=== PATIENT | female | born 1970 | race Two or more races ===

== ENCOUNTER 2023-07-27 17:48 | Outpatient (OUT) | payer BC, SELFPAY ==
--- NOTE | 2023-07-27 18:08 | US_ITS ---
The [address] [address] Patient Name: MIRTA CHAHAL MRN: [id number] date: 1970 Sex: F Assigned Patient Location: [facility] Current Patient Location: RAD Accession/Order Number: [id number] Exam Date: 07/27/2023 18:15 Report Date: 07/28/2023 07:44 At the request of: CRYSTAL REILLY Procedure: US pelvis w/ transvaginal EXAMINATION: US pelvis w/ transvaginal HISTORY: LLQ PAIN, FLANK PAIN COMPARISON: Ultrasound pelvis 03/09/2021 TECHNIQUE: Transabdominal and/or transvaginal sonographic examination was performed as indicated by examination type. FINDINGS: UTERUS: Hysterectomy. RIGHT OVARY: Not seen. No suspicious adnexal findings. LEFT OVARY: Not seen. No suspicious adnexal findings. CUL-DE-SAC: Unremarkable. No significant free fluid. BLADDER: Unremarkable. OTHER: None. US/US pelvis w/ transvaginal IMPRESSION: 1. No abnormal or suspicious findings to account for patient's symptoms. Electronically authenticated by: ARNULFO GUERRERO Date: 07/28/2023 07:44
--- NOTE | 2023-07-27 18:14 | XR_ITS ---
The [address] [address] Patient Name: MIRTA CHAHAL MRN: [id number] date: 1970 Sex: F Assigned Patient Location: [facility] Current Patient Location: Accession/Order Number: [id number] Exam Date: 07/27/2023 18:45 Report Date: 07/28/2023 06:40 At the request of: CRYSTAL REILLY Procedure: XR abdomen 1V EXAMINATION: XR abdomen 1V HISTORY: LLQ PAIN, LEFT FLANK PAIN COMPARISON: No relevant comparison available. FINDINGS: KIDNEY/URETER - RIGHT: No visible renal or ureteral calcifications. KIDNEY/URETER - LEFT: No visible renal or ureteral calcifications. PELVIS: Several small round calcifications within the lower pelvis; nonspecific but favoring phleboliths. BOWEL: No abnormal dilation or deviation. BONES: No acute abnormality. OTHER: Negative. No abnormal gaseous collections. XR/XR abdomen 1V IMPRESSION: 1. Nonspecific pelvic calcifications; phleboliths are favored over distal ureteral stones. Electronically authenticated by: ARNULFO GUERRERO Date: 07/28/2023 06:40
== END 2023-07-27 17:49 | disposition home or self-care (01) ==
PROVIDERS: PCP Nurse Practitioner; Visit Provider Nurse Practitioner
DX: R10.32 Left lower quadrant pain (principal); R10.9 Unspecified abdominal pain
CPT/HCPCS: 74018; 76830; 76856

== ENCOUNTER 2023-08-02 16:10 | Outpatient (OUT) | payer BC, SELFPAY ==
--- NOTE | 2023-08-02 | XR_ITS ---
The [address] [address] Patient Name: MIRTA CHAHAL MRN: [id number] date: 1970 Sex: F Assigned Patient Location: LAB Current Patient Location: LAB Accession/Order Number: [id number] Exam Date: 08/02/2023 16:40 Report Date: 08/02/2023 23:15 At the request of: CRYSTAL REILLY Procedure: XR hip LT 2V w/ pelvis EXAM: XR hip LT 2V w/ pelvis HISTORY: Left hip pain COMPARISON: None. TECHNIQUE: AP pelvis and 2 views of the left hip FINDINGS: IMPRESSION: No osseous lesion, fracture, dislocation or subluxation. The hip joints and sacroiliac joints are normal. Mild age-related changes of the pubic symphysis. No visualized effusion. No visualized soft tissue edema. Stool within the rectum and colon. The bowel gas pattern is nonobstructed Electronically authenticated by: CHANDNI MORALES Date: 08/02/2023 23:15
[2023-08-02 16:41] LABS: Basophils Percent Auto 0.4 % (0.2-2.0); Eosinophils Absolute Auto 0.2 10^3/uL (0.0-0.7); Eosinophils Percent Auto 1.9 % (0.9-7.0); Hematocrit 38.7 % (36.0-48.0); Hemoglobin 12.9 g/dL (12.0-16.0); Immature Granulocytes Abs Auto 0.02 10^3/uL (0.00-0.03); Immature Granulocytes Pct Auto 0.3 % (0.0-0.5); Lymphocytes Absolute Auto 2.5 10^3/uL (1.2-3.8); Lymphocytes Percent Auto 31.7 % (20.5-60.0); Mean Corpuscular HGB Conc 33.3 g/dL (29.9-35.2); Mean Corpuscular Hemoglobin 31.8 pg (26.7-34.0); Mean Corpuscular Volume 95.3 fL (81.0-99.0); Mean Platelet Volume 9.8 fL (9.5-13.5); Monocytes Absolute Auto 0.8 10^3/uL (0.3-0.8); Monocytes Percent Auto 9.5 % (1.7-12.0); Neutrophils Absolute Auto 4.4 10^3/uL (1.4-6.5); Neutrophils Percent Auto 56.2 % (43.0-75.0); Platelet Count 283 10^3/uL (150-450); Red Blood Count 4.06 10^6/uL (4.20-5.40); Red Cell Distribution Width 12.3 % (11.0-15.0); White Blood Count 7.9 10^3/uL (4.0-11.0)
[2023-08-02 16:42] LABS: Bilirubin Urine NEGATIVE (NEGATIVE); Blood Urine SMALL (NEGATIVE); Clarity Urine CLEAR (CLEAR); Color Urine LT. YELLOW (YELLOW); Glucose Urine UA NEGATIVE (NEGATIVE); Ketones Urine NEGATIVE (NEGATIVE); Leukocyte Esterase Urine NEGATIVE (NEGATIVE); Nitrite Urine NEGATIVE (NEGATIVE); Protein Urine NEGATIVE (NEG/TRACE); Specific Gravity Urine <=1.005 (1.005-1.025); Urobilinogen Urine 0.2 EU/dL (0.2-1.0)
[2023-08-02 16:47] LABS: Urine Microscopic Indicated ALREADY ORDERED
[2023-08-02 16:49] LABS: Erythrocyte Sedimentation Rate 26 mm/hr (<=30)
[2023-08-02 16:57] LABS: Bacteria Urine TRACE #/HPF (NONE SEEN); Crystals Seen? None Seen #/HPF (None Seen); Mucus Urine NONE SEEN (NONE SEEN); Squamous Epithelial Cell Urine RARE #/LPF (NONE/RARE); WBC Urine NONE SEEN #/HPF (NONE SEEN)
[2023-08-02 16:58] LABS: Cast Seen? NONE SEEN #/LPF (NONE SEEN); Urine Culture Indicated NO
[2023-08-02 16:58] LABS: Alanine Aminotransferase 29 U/L (14-59); Albumin Globulin Ratio 0.9; Albumin Level 3.6 g/dL (3.4-5.0); Alkaline Phosphatase 87 U/L (46-116); Anion Gap 11.1; Aspartate Amino Transferase 15 U/L (15-37); BUN Creatinine Ratio 15.3; Bilirubin Total 0.2 mg/dL (0.2-1.0); Calcium 9.1 mg/dL (8.5-10.1); Carbon Dioxide 26.7 mmol/L (21.0-32.0); Chloride 102 mmol/L (98-107); Estimated GFR (African America >60 (>=60); Estimated GFR (Non-African Ame >60 (>=60); Globulin 3.8 g/dL; Glucose 82 mg/dL (74-106); Potassium 3.8 mmol/L (3.5-5.1); Sodium 136 mmol/L (136-145); Total Protein 7.4 g/dL (6.4-8.2)
== END 2023-08-02 16:11 | disposition home or self-care (01) ==
LOC: LAB 16:16
PROVIDERS: PCP Nurse Practitioner; Visit Provider Nurse Practitioner
DX: M25.552 Pain in left hip (principal); R10.32 Left lower quadrant pain
CPT/HCPCS: 36415; 73502; 80053; 85025; 85652

== ENCOUNTER 2023-08-26 07:39 | Outpatient (OUT) | payer BC, SELFPAY ==
[2023-08-26 08:28] LABS: Bilirubin Urine NEGATIVE (NEGATIVE); Blood Urine MODERATE (NEGATIVE); Clarity Urine CLEAR (CLEAR); Color Urine YELLOW (YELLOW); Glucose Urine UA NEGATIVE (NEGATIVE); Ketones Urine NEGATIVE (NEGATIVE); Leukocyte Esterase Urine NEGATIVE (NEGATIVE); Nitrite Urine NEGATIVE (NEGATIVE); Protein Urine NEGATIVE (NEG/TRACE); Specific Gravity Urine 1.015 (1.005-1.025); Urobilinogen Urine 0.2 EU/dL (0.2-1.0); pH Urine 6.5 (5.0-9.0)
[2023-08-26 08:30] LABS: WBC Urine NONE SEEN #/HPF (NONE SEEN)
[2023-08-26 08:31] LABS: Bacteria Urine NONE SEEN #/HPF (NONE SEEN); Cast Seen? NONE SEEN #/LPF (NONE SEEN); Crystals Seen? None Seen #/HPF (None Seen); Mucus Urine NONE SEEN (NONE SEEN); RBC Urine 0-2 #/HPF (0-2); Squamous Epithelial Cell Urine RARE #/LPF (NONE/RARE); Urine Culture Indicated NO
== END 2023-08-26 07:40 | disposition home or self-care (01) ==
LOC: LAB 07:40
PROVIDERS: PCP Nurse Practitioner; Visit Provider Nurse Practitioner
DX: R31.29 Other microscopic hematuria (principal)
CPT/HCPCS: 81001

== ENCOUNTER 2023-09-02 08:40 | Outpatient (OUT) | payer BC, SELFPAY ==
--- NOTE | 2023-09-02 | CT_ITS ---
[address] [address] Patient Name: MIRTA CHAHAL MRN: [id number] date: 1970 Sex: F Assigned Patient Location: CT Current Patient Location: CT Accession/Order Number: [id number] Exam Date: 09/02/2023 10:10 Report Date: 09/02/2023 11:47 At the request of: CRYSTAL REILLY Procedure: CT abdomen pelvis w con CLINICAL HISTORY: Microscopic hematuria, questionable hernia LLQ. EXAMINATION: Enhanced CT scan of the abdomen and pelvis: 09/02/2023. COMPARISON: None. TECHNIQUE: 3 mm axial images from lung bases through ischial tuberosities following administration of intravenous as well as oral contrast were obtained. Sagittal and coronal reconstructions were performed. 98 mL of Omnipaque 350 was utilized as intravenous contrast. Dose reduction techniques were achieved by using automated exposure control and/or adjustment of mA and/or kV according to patient size and/or use of iterative reconstruction technique. FINDINGS: The visualized lung bases seem normal. There is a calcified granuloma in the right middle lobe. The heart size seems normal. There are no filling defects in the cardiac chambers postcontrast. CT ABDOMEN: The liver demonstrates there is a low-attenuation lesion in the lateral segment of the left hepatic lobe, measuring approximately 1.6 cm in size with average Hounsfield units of approximately 6. There is a low-attenuation lesion in the lateral segment of the left hepatic lobe measuring 6 mm in size. There is hypodensity in the medial segment of left hepatic lobe, measuring approximately 8 mm in size. There is focal fatty infiltration abutting the falciform ligament in the medial as well as the lateral segments of the left hepatic lobe. There are multiple calculi in the gallbladder without wall thickening or induration of surrounding fat. Spleen, pancreas, adrenal glands, left kidney appears normal. In the right kidney there is a partially parapelvic low-attenuation lesion in the upper pole, measuring approximately 1.8 cm in size with average Hounsfield units of approximately 15. There is no hydronephrosis, nephrolithiasis, or perinephric fat stranding. The abdominal aorta has mild atherosclerotic changes. There is no retroperitoneal or mesenteric adenopathy. There is no aneurysm. The bowel loops are of normal caliber. There is no abdominal wall hernia. The appendix appears normal. CT PELVIS: There is no ureterolithiasis. The bladder seems normal. The uterus and ovaries are not well seen. There is no pelvic adenopathy. On the delayed phase contrast images there are no suspicious filling defects in the opacified portions of the collecting systems, ureters, or bladder. There is no pelvic adenopathy. There are no focal fluid collections. The images on bone windows demonstrate degenerative disc disease with vacuum disc phenomena at L4-L5 with some endplate sclerosis. No lytic or sclerotic lesions are seen. CT/CT abdomen pelvis w con IMPRESSION: 1. There is no nephro or ureterolithiasis. 2. There is a simple cyst in the right kidney. There are no suspiciously enhancing lesions in the kidneys. There are no suspicious filling defects in the opacified portions of the collecting systems, ureters, or bladder. 3. Cholelithiasis but no acute cholecystitis. 4. Fatty liver. 5. Normal appendix. Electronically authenticated by: MARKIE BRANDON Date: 09/02/2023 11:47
== END 2023-09-02 08:41 | disposition home or self-care (01) ==
LOC: CT 08:43
PROVIDERS: PCP Nurse Practitioner; Visit Provider Nurse Practitioner
DX: R10.32 Left lower quadrant pain (principal); K80.20 Calculus of gallbladder without cholecystitis without obstruction; K76.0 Fatty (change of) liver, not elsewhere classified; N28.1 Cyst of kidney, acquired
CPT/HCPCS: 74177; Q9967

== ENCOUNTER 2023-09-25 15:20 | Outpatient (OUT) | payer BC, SELFPAY ==
--- NOTE | 2023-09-25 15:23 | MR_ITS ---
[address] [address] Patient Name: MIRTA CHAHAL MRN: [id number] date: 1970 Sex: F Assigned Patient Location: MRI Current Patient Location: Accession/Order Number: [id number] Exam Date: 09/25/2023 16:00 Report Date: 09/27/2023 07:40 At the request of: CRYSTAL REILLY Procedure: MR abdomen wo/w con EXAMINATION: MR abdomen wo/w con HISTORY: Liver Lesion K76.9 COMPARISON: CT abdomen pelvis 09/02/2023 TECHNIQUE: A comprehensive MRI examination of the abdomen was performed to optimize visualization of suspected pathology. Images were obtained with and/or without intravenous Dotarem contrast as indicated by exam type. FINDINGS: LIVER: Several small cysts within the liver, largest is 2.0 cm. BILIARY: Several large stones within the noninflamed gallbladder. PANCREAS: No lesion, fluid collection, ductal dilatation, or atrophy. SPLEEN: No enlargement or focal lesion. KIDNEYS: Stable benign-appearing right renal cyst. No mass or obstruction. ADRENALS: No mass or enlargement. AORTA/VASCULAR: No aneurysm or dissection. RETROPERITONEUM: No mass or adenopathy. BOWEL/MESENTERY: No visible mass, obstruction, or bowel wall thickening. ABDOMINAL WALL: No mass or hernia. BONES: No bony lesion or fracture. LUNG BASES: No visible pleural disease. Lung bases not well assessed with MRI. OTHER: Negative. MR/MR abdomen wo/w con IMPRESSION: 1. Several small lesions within the liver compatible with simple cysts. No additional follow-up recommended. 2. Cholelithiasis. Electronically authenticated by: ARNULFO GUERRERO Date: 09/27/2023 07:40
== END 2023-09-25 15:21 | disposition home or self-care (01) ==
PROVIDERS: PCP Nurse Practitioner; Visit Provider Nurse Practitioner
DX: K76.9 Liver disease, unspecified (principal); K76.89 Other specified diseases of liver
CPT/HCPCS: 74183; A9575

== ENCOUNTER 2023-10-14 07:59 | Outpatient (OUT) | payer BC, SELFPAY ==
--- NOTE | 2023-10-14 | US_ITS ---
[address] [address] Patient Name: MIRTA CHAHAL MRN: [id number] date: 1970 Sex: F Assigned Patient Location: US Current Patient Location: US Accession/Order Number: [id number] Exam Date: 10/14/2023 08:07 Report Date: 10/14/2023 11:26 At the request of: CRYSTAL REILLY Procedure: US right upper quadrant EXAM: US right upper quadrant EXAM DATE: 10/14/2023 6:07 AM MST COMPARISON: CT abdomen and pelvis with contrast 09/02/2023. MRI abdomen without contrast 09/25/2023. INDICATION: Cholelithiasis. TECHNIQUE: Limited ultrasound of the right upper quadrant of abdomen was performed. Images were reviewed on a separate workstation. FINDINGS: Hepatic parenchyma is echogenic to adjacent renal cortex. Scattered hepatic cysts measure up to 1.5 x 1.5 x 1.5 cm. Gallbladder is normally distended. Large shadowing gallstones obscure the posterior wall of the gallbladder. No pericholecystic fluid noted. Gallbladder wall measures up to 3-4 mm. Sonographic Brooks's sign is absent. No intrahepatic or extrahepatic biliary ductal dilatation noted. CBD measures 5 mm. Portal vein is patent with hepatopetal flow. Pancreas is partially obscured by bowel gas; visualized parenchyma is homogeneous. Right kidney measures 9.9 x 3.9 x 4.4 cm. No hydronephrosis or nephrolithiasis noted. No free fluid noted in the right upper abdomen. US/US right upper quadrant IMPRESSION: 1. Limited visualization of the gallbladder due to several large shadowing gallstones. Borderline gallbladder wall thickening may represent chronic inflammation. Sonographic Brooks's sign is absent. 2. Mild fatty infiltration of the liver. 3. Subvisualized pancreas. 4. Right kidney without hydronephrosis. Electronically authenticated by: MYRA CROSS Date: 10/14/2023 11:26
== END 2023-10-14 08:00 | disposition home or self-care (01) ==
LOC: US 07:59
PROVIDERS: PCP Nurse Practitioner; Visit Provider Nurse Practitioner
DX: K80.20 Calculus of gallbladder without cholecystitis without obstruction (principal)
CPT/HCPCS: 76705

== ENCOUNTER 2023-12-25 14:32 | Outpatient (OUT) | payer BC, SELFPAY ==
--- NOTE | 2023-12-25 14:34 | ECG_ITS ---
The [facility] Test Date: 2023-12-25 Pat Name: MIRTA CHAHAL Department: Room: - Gender: Female [place]aser: : 1970 Requested By: HERNANDEZ MCGILL Order Number: [id number] Reading MD: MAX STONE Measurements Intervals [place] Rate: 70 P: 23 MA: 140 QRS: 16 QRSD: 87 T: 29 QT: 361 QTc: 390 Interpretive Statements SINUS RHYTHM No previous ECG available for comparison Electronically Signed On 12-25-2023 23:30:32 EST by MAX STONE
== END 2023-12-25 14:33 | disposition home or self-care (01) ==
LOC: PST 14:32
PROVIDERS: PCP Nurse Practitioner; Visit Provider Surgery
DX: Z01.810 Encounter for preprocedural cardiovascular examination (principal); K80.20 Calculus of gallbladder without cholecystitis without obstruction
CPT/HCPCS: 93005

== ENCOUNTER 2024-01-03 09:00 | Day surgery (SDC) | payer BC, SELFPAY ==
[2023-12-25 14:48] VITALS: BP 129/75; PULSE 80; RESP 16; TEMP 36.2; O2SAT 96; BMI 29.3
[2024-01-03] VITALS (10 sets, daily range): BP systolic 108–137; BP diastolic 58–80; PULSE 60–82; RESP 10–18; TEMP 35.5–36.3; O2SAT 95–100
--- NOTE | 2024-01-03 | OP_ITS ---
OPERATION DATE: 01/03/2024 PREOPERATIVE DIAGNOSIS: Symptomatic cholelithiasis. POSTOPERATIVE DIAGNOSIS: Chronic cholecystitis. PROCEDURE: Laparoscopic cholecystectomy. SURGEON: Josr Weaver M.D. ANESTHESIA: General endotracheal. ESTIMATED BLOOD LOSS: Less than 20 mL. INDICATIONS AND CONSENT: Patient is a 53-year-old female with some intermittent upper abdominal complaints. She did end up having a CT scan which revealed hard stones within the gallbladder, as well as some liver cysts. She also had an ultrasound and MRI that confirmed that the cysts were just simple cysts. She had three large stones filling the gallbladder, as well as normal liver function tests. Indications, risks, benefits, alternatives of proceeding with laparoscopic cholecystectomy, possible intraoperative cholangiogram, possible open procedure were explained extensively to the patient, including risks of bleeding, infection, bile duct injury, bowel injury, need for intraoperative cholangiogram, postoperative ERCP or open procedure. All of her questions were answered. Informed consent was obtained. PROCEDURE: Patient was brought to the operating room, placed in the supine position. General anesthesia was induced. She was prepped and draped in the usual sterile fashion. A supraumbilical incision was made with the scalpel blade and carried down through subcutaneous tissue using blunt dissection. The fascia was grasped and incised. Two 0 Vicryl stay sutures were placed in either side of the midline fascia. The Dunham trocar was then inserted and secured using the stay sutures. The abdomen was then insufflated with carbon dioxide to a pressure of 15 mm/Hg. The scope was then inserted and the upper abdomen was visualized. Three 5 mm ports were then placed; one in the subxiphoid area and two in the right subcostal area, all under direct visualization. The patient was placed in reverse Trendelenburg position with the right side up. The fundus of the gallbladder was grasped with an atraumatic grasper and retracted cephalad on the patient?s right. There was some tension from the falciform ligament that was partially taken down to avoid tension on the medial aspect of the liver. The infundibulum was grasped and retracted laterally and inferiorly. Dissection was begun just below the infundibulum, where the cystic duct and cystic artery were carefully dissected out. The infundibulum was completely freed up and the critical view of safety was obtained. The cystic artery was clipped with regular clips; two proximally and one distally towards the gallbladder, then divided. The cystic duct was noted to be of normal caliber. It was clipped with two Hem-O-Lashon clips proximally towards the common duct and one distally towards the gallbladder, then divided. The gallbladder was then taken down from the liver bed using electrocautery. There were some chronic inflammatory changes noted. A small opening in the posterior aspect of the gallbladder revealed some minimal release of light bile. No stones. There were three large stones noted, taking up the majority of the gallbladder lumen. Once the gallbladder was completely removed, it was brought out in an Endocatch bag through the umbilical port site, which had to be enlarged to accommodate the large stones. The upper abdomen was then copiously irrigated. The liver bed was inspected, noted to be hemostatic with no lymph or bile leaks. All port sites were examined upon withdrawal of the ports. There was noted to be good hemostasis. The umbilical port site fascia was closed with a 0 Vicryl figure of eight suture. All port sites were infiltrated with 0.5% Marcaine. The skin was then closed with interrupted 4-0 subcuticular Monocryl sutures and skin glue. Sterile dressings were applied. Sponge and needle counts were correct x3 per nursing personnel. Patient tolerated procedure well, was extubated and sent to recovery room in good condition. CC: LUIZA Costello
--- OUTSIDE RECORDS SUMMARY | 2024-01-03 09:03 | XMS_ITS | CCD ---
Author Name Unknown Address [address] [place] [address] Organization [facility] Care Team Providers Care Auto Air Condition[employer] Installer Name Role Phone AICHHOLZ, HOTEL LOBBY CONCIERGE CHANA Admitting Unavailable ALLISON BOWERS Primary Care Unavailable AICHHOLZ, MACIE CHANA Attending Unavailable AICHHOLZ, HOTEL LOBBY CONCIERGE CHANA Consulting Unavailable LULI REDDY Consulting Unavailable AICHHOLZ, HOTEL LOBBY CONCIERGE CHANA Consulting Unavailable ROBINSON ALLISONAVRIL MACDNOALD Primary Care Unavailable AICHHOLZ, HOTEL LOBBY CONCIERGE CHANA Admitting Unavailable AICHHOLZ, MACIE CHANA Attending Unavailable DR ANISH PIERSON Consulting Unavailable AICHHOLZ, HOTEL LOBBY CONCIERGE CHAAN Consulting Unavailable AICHHOLZ, HOTEL LOBBY CONCIERGE CHANA Admitting Unavailable ALLISON BOWERS Primary Care Unavailable AICHHOLZ, HOTEL LOBBY CONCIERGE CHANA Attending Unavailable AICHHOLZ, HOTEL LOBBY CONCIERGE CHANA Admitting Unavailable [facility] Unavailable AICHHOLZ, HOTEL LOBBY CONCIERGE CHANA Attending Unavailable AICHHOLZ, HOTEL LOBBY CONCIERGE CHANA Consulting Unavailable BETZAIDAHPK, CHANA Attending Unavailable CHANA CARVALHO J Primary Care Physician Josr MCGILL Attending Unavailable CHANA CARVALHO Referring Unavailable Allergies Allergy Classification Reported Allergen(s) Allergy Type Date of Onset Reaction(s) Facility (1 source) No Known Medication Allergies; Translations: [No Known Medication Allergies] Propensity to adverse reactions (disorder) [facility] Repository Medications Current Medications Medication Drug Class(es) Dates Sig (Normalized) Sig (Original) Multi Vitamins oral tablet (1 source) Start: 11-15-2023 take 1 tablet by mouth once daily Multi Vitamins oral tablet 1 tab(s), Oral, Daily, Refill(s) 0 Start Date: 11/15/23 Status: Ordered Problems Active Problems Problem Classification Problem Date Documented Da te Episodic/Chronic Biliary tract disease (1 source) Biliary calculus 11-15-2023 Episodic Immunizations and screening for infectious disease (1 source) Encounter for screening for other infectious and parasitic diseases; Translations: [ENC SCREENING OTH INF PARASITIC DZ] Onset: 01-16-2023 Episodic Other gastrointestinal disorders (1 source) Heartburn 11-15-2023 Episodic Other nutritional; endocrine; and metabolic disorders (1 source) Overweight 12-06-2023 Episodic Other nutritional; endocrine; and metabolic disorders (1 source) Overweight in adulthood with body mass index of 25 or more but less than 30 12-06-2023 Episodic Other screening for suspected conditions (not mental disorders or infectious disease) (4 sources) Encounter for screening mammogram for malignant neoplasm of breast; Translations: [ENC SCR MAMMO MALIG NEOPLASM BREAST] Onset: 02-21-2023 Episodic Residual codes; unclassified (1 source) Family history of malignant neoplasm of ovary; Translations: [FAM HX MALIGNANT NEOPLASM OVARY] Onset: 02-25-2023 Episodic Unclassified (3 sources) CONTACT W/AND (SUSP) EXPOS COVID-19; Translations: [CONTACT W/AND (SUSP) EXPOS COVID-19] Onset: 01-16-2023 Past or Other Problems Problem Classification Problem Date Documented Da te Episodic/Chronic Other connective tissue disease (4 sources) Pain in right leg; Translations: [PAIN IN RIGHT LEG] Onset: 08-17-2022 Episodic Unclassified (1 source) CONTACT W/AND (SUSP) EXPOS COVID-19; Translations: [CONTACT W/AND (SUSP) EXPOS COVID-19] Onset: 01-10-2023 Results Test Name Value Interpretation Reference Range Facil ity Consent for Procedure/Surger yon 12-07-2023 Consent for Procedure/Surgery [id number] .00TIFF Normal [facility] Facesheeton 12-07-2023 Facesheet [id number] .00TIFF Normal [facility] Ambulatory Visit Summaryon 0 12-06-2023 Ambulatory Visit Summary SILKE CHAHALONNE :1970 Visit Date:12/06/2023 Ambulatory Visit Instructions Your Care Team Attending Physician - ARTEM NUNN, Josr Torres Primary Care Physician - CHANA CARVALHO CNP Referring Physician - CHANA CARVALHO CNP This Is Your Medications List Contact prescribing physician if questions or concerns multivitamin (Multi Vitamins oral tablet) Procedures Performed Abdominal hysterectomy, section. Discharge Vitals Heart Rate (Peripheral) 70 Respiratory Rate 16 Blood Pressure 118/82 Height 165 cm Height 65 in Weight 80.4 kg Weight 176.88 lb BMI 29.53 Medications What How Much When Instructions Unchanged multivitamin (Multi Vitamins oral tablet) 1 Tablets By Mouth Every day Contact prescribing physician if questions or concerns Allergies No Known Allergies No Known Medication Allergies Problems Ongoing - Any problem that you are currently receiving treatment for. BMI 29.0-29.9,adult Cholelithiases Heartburn Overweight Patient Survey You may receive a survey via text or e-mail asking about your office visit. Please share your experience with us by completing your survey. We appreciate your feedback and thank you for choosing us for your care. Normal [facility] RAD - Ultrasound Reporton RAD - Ultrasound Report [id number] .00TIFF Normal [facility] Physician Referralon 023 Physician Referral [id number] .00TIFF [facility] MG MAMM SCREEN 3D AYANNA CADon 02-21-2023 MG MAMM SCREEN 3D AYANNA CAD Patient: MIRTA CHAHAL Exam Date: 02/21/2023 : 1970 Gender:F Ordering : MACIE CARVALHO CNP Admission #: [id number] Family : Order #: [id number] CLICK HERE TO VIEW EXAM RADIOLOGY REPORT PROCEDURE: MAMMOGRAM SCREENING 3D BILATERAL CAD COMPARISON: MG MAMM SCREEN AYANNA W CAD, 12/31/2020. MG MAMM SCREEN AYANNA W CAD, 12/19/2019. MG MAMM AYANNA SCRN W CAD DIG, 06/23/2014. INDICATIONS: Screening mammography Calculator Name NCI Breast Cancer Risk Assessment Tool 5 Year Breast Cancer Risk 0.70% Lifetime Breast Cancer Risk 6.40% Personal Breast Cancer No Personal Ovarian Cancer No Treatments None Family Cancers Mother with ovarian cancer at age 54. LOCATION: [facility] BREAST COMPOSITION: Heterogeneously dense,which may obscure small masses. FINDINGS: DIAGNOSTIC CATEGORY 1--NEGATIVE. RIGHT BREAST: No significant suspicious finding. No significant change has occurred. LEFT BREAST: No significant suspicious finding. No significant change has occurred. RECOMMENDATIONS: ROUTINE MAMMOGRAM AND CLINICAL EVALUATION IN 12 MONTHS. PLEASE NOTE: A NORMAL MAMMOGRAM DOES NOT EXCLUDE THE POSSIBILITY OF BREAST CANCER. A CLINICALLY SUSPICIOUS PALPABLE LUMP SHOULD BE BIOPSIED. Dictated by: Anish Pierson M.D. on 02/21/2023 at 17:41 Approved by: Anish Pierson M.D. on 02/21/2023 at 17:44 Normal [facility] 12-28 SARS-CoV-2 (COVID-19) RNA BOBY+probe Ql (Unsp spec) Not detected Normal NOT DETECTED [facility] Comment on above: Result Comment: When diagnostic testing is negative, the possibility of a false negative should be considered in the context of a patient's recent exposures and the presence of clinical signs and symptoms consistent with SARS-CoV-2. This test is not yet approved or cleared by the [place] FDA. When there are no FDA-approved or cleared tests available, and other criteria are met, FDA can make tests available under an emergency access mechanism called an Emergency Use Authorization (EUA). The EUA for this test is supported by the Triage Assistant of Health and Human Service's declaration that circumstances exist to justify the emergency use of in vitro diagnostics for the detection and/or diagnosis of the virus that causes COVID-19. This EUA will remain in effect for the duration of the COVID-19 declaration justifying emergency of IVDs, unless it is terminated or revoked by the FDA (after which the test may no longer be used). Performed By: #### C VDTBH #### [facility] [address] [place] [address] Dr. Ranadll Goncalves INFLUENZA A AND B AGon 01-10 INFLUANEGH SEE BELOW Normal [facility] Comment on above: Result Comment: Nega tive for Flu A protein angiten. Infection due to Flu A cannot be ruled out. Flu A angiten in the sample may be below the detection limit of the test. Performed By: #### I NFLUAB #### [facility] [address] [place] [address] Dr. Randall Goncalves [facility] SEE BELOW Normal [facility] Comment on above: Result Comment: Nega tive for Flu B protein antigen. Infection due to Flu B cannot be ruled out. Flu B antigen in the sample may be below the detection limit of the test. Performed By: #### I NFLUAB #### [facility] [address] [place] [address] Dr. Randall Goncalves INFLUENZA A AG Negative Normal NEGATIVE SEE COMMENT [facility] Comment on above: Performed By: #### I NFLUAB #### [facility] [address] [place] [address] Dr. Randall Goncalves INFLUENZA B AG Negative Normal NEGATIVE SEE COMMENT [facility] Comment on above: Performed By: #### I NFLUAB #### [facility] [address] [place] [address] Dr. Randall Goncalves CBC AUTO DIFFon 09-10-2022 BASO # 0.0 103/ul Normal 0.0-0.1 [facility] Comment on above: Performed By: #### C BC #### [facility] [address] [place] [address] Dr. Randall Goncalves Basophils/100 WBC (Bld) 0.6 % Normal 0.2-2.0 [facility] Comment on above: Performed By: #### C BC #### [facility] [address] [place] [address] Dr. Randall Goncalves EO # 0.2 103/ul Normal 0.0-0.7 [facility] Comment on above: Performed By: #### C BC #### [facility] [address] [place] [address] Dr. Randall Goncalves Eosinophils/100 WBC (Bld) 3.0 % Normal 0.9-7.0 [facility] Comment on above: Performed By: #### C BC #### [facility] [address] [place] [address] Dr. Randall Goncalves Erythrocyte distribution width (RBC) [Ratio] 12.5 % Normal 11.0-15.0 [facility] Comment on above: Performed By: #### C BC #### [facility] [address] [address] [address] Randall Goncalves Hematocrit (Bld) [Volume fraction] 42.0 % Normal 36.0-48.0 [facility] Comment on above: Performed By: #### C BC #### [facility] [address] [address] [address] Randall Goncalves Hemoglobin (Bld) [Mass/Vol] 13.9 g/dL Normal 12.0-16.0 [facility] Comment on above: Performed By: #### C BC #### [facility] [address] [place] [address] Dr. Randall Goncalves IG # 0.01 10e3/ul Normal 0.00-0.03 [facility] Comment on above: Performed By: #### C BC #### [facility] [address] [place] [address] Dr. Randall Goncalves IG % 0.2 % Normal 0.0-0.5 [facility] Comment on above: Performed By: #### C BC #### [facility] [address] [place] [address] Dr. Randall Goncalves LYMPH # 1.9 103/ul Normal 1.2-3.8 [facility] Comment on above: Performed By: #### C BC #### [facility] [address] [place] [address] Dr. Randall Goncalves Lymphocytes/100 WBC (Bld) 28.6 % Normal 20.5-60.0 [facility] Comment on above: Performed By: #### C BC #### [facility] [address] [place] [address] Dr. Randall Goncalves MANUAL DIFF REQ NO Normal [facility] Comment on above: Performed By: #### C BC #### [facility] [address] [place] [address] Dr. Randall Goncalves MCH (RBC) [Entitic mass] 31.0 pg Normal 26.7-34.0 [facility] Comment on above: Performed By: #### C BC #### [facility] [address] [address] [address] Randall Goncalves MCHC (RBC) [Mass/Vol] 33.1 g/dL Normal 29.9-35.2 [facility] Comment on above: Performed By: #### C BC #### [facility] [address] [address] [address] Randall Goncalves MCV (RBC) [Entitic vol] 93.8 fL Normal 81.0-99.0 [facility] Comment on above: Performed By: #### C BC #### [facility] [address] [place] [address] Dr. Randall Goncalves MONO # 0.5 103/ul Normal 0.3-0.8 [facility] Comment on above: Performed By: #### C BC #### [facility] [address] [place] [address] Dr. Randall Goncalves Monocytes/100 WBC (Bld) 7.7 % Normal 1.7-12.0 [facility] Comment on above: Performed By: #### C BC #### [facility] [address] [place] [address] Dr. Randall Goncalves NEUT # 4.0 103/ul Normal 1.4-6.5 [facility] Comment on above: Performed By: #### C BC #### [facility] [address] [place] [address] Dr. Randall Goncalves Neutrophils/100 WBC (Bld) 59.9 % Normal 43.0-75.0 [facility] Comment on above: Performed By: #### C BC #### [facility] [address] [place] [address] Dr. Randall Goncalves Platelet mean volume (Bld) [Entitic vol] 9.4 fL Critically low 9.5-13.5 [facility] Comment on above: Performed By: #### C BC #### [facility] [address] [place] [address] Dr. Randall Goncalves PLT 323 103/ul Normal 150-450 [facility] Comment on above: Performed By: #### C BC #### [facility] [address] [address] [address] Randall Goncalves RBC 4.48 106/ul Normal 4.20-5.40 [facility] Comment on above: Performed By: #### C BC #### [facility] [address] [address] [address] Randall Goncalves WBC 6.6 103/ul Normal 4.0-11.0 [facility] Comment on above: Performed By: #### C BC #### [facility] [address] [address] [address] Randall Goncalves LIPID PROFILEon 09-10-2022 CHOL-HDL RATIO NORM SEE BELOW Normal [facility] Comment on above: Result Comment: 3.3 - 4.4 LOW RISK 4.4 - 7.1 AVERAGE RISK 7.1 - 11.0 MODERATE RISK >11.0 HIGH RISK Performed By: #### T SH, LIPID, CMP #### [facility] [address] [place] [address] Dr. Randall Goncalves Cholesterol [Mass/Vol] 203 mg/dL Critically high <=200 [facility] Comment on above: Performed By: #### T SH, LIPID, CMP #### [facility] [address] [place] [address] Dr. Randall Goncalves Cholesterol in HDL [Mass/Vol] 67 mg/dL Critically high 40-60 [facility] Comment on above: Performed By: #### T SH, LIPID, CMP #### [facility] [address] [address] [address] Randall Goncalves Cholesterol in LDL [Mass/Vol] 122.2 mg/dL Normal [facility] Comment on above: Performed By: #### T SH, LIPID, CMP #### [facility] [address] [address] [address] Randall Goncalvse Cholesterol.total/C holesterol in HDL [Mass ratio] 3.0 {ratio} Normal [facility] Comment on above: Performed By: #### T SH, LIPID, CMP #### [facility] [address] [address] [address] Randall Goncalves HDL NORMAL > or = 60 mg/dl - LO W CARDIOVASCULAR RISK <40 mg/dl - HIGH CARDIOVASCULAR RISK Normal [facility] Comment on above: Performed By: #### T SH, LIPID, CMP #### [facility] [address] [address] [address] Randall Goncalves LDL CALC NORMAL SEE BELOW Normal [facility] Comment on above: Result Comment: <100 mg/dl OPTIMAL 100 - 129 mg/dl NEAR OR ABOVE OPTIMAL 130 - 159 mg/dl BORDERLINE HIGH 160 - 189 mg/dl HIGH >190 mg/dl VERY HIGH Performed By: #### T SH, LIPID, CMP #### [facility] [address] [address] [address] Randall Goncalves Triglyceride [Mass/Vol] 69 mg/dL Normal <=150 [facility] Comment on above: Performed By: #### T SH, LIPID, CMP #### [facility] [address] [address] [address] Randall Goncalves VLDL CALC 13.8 mg/dL Normal [facility] Comment on above: Performed By: #### T SH, LIPID, CMP #### [facility] [address] [address] [address] Randall Goncalves PROF 14(COMP METB)on 022 Albumin [Mass/Vol] 3.9 g/dL Normal 3.4-5.0 [facility] Comment on above: Performed By: #### T ANOOP, LIPID, CMP #### [facility] [address] [address] [address] Randall Goncalves Albumin/Globulin [Mass ratio] 1.0 {ratio} Normal [facility] Comment on above: Performed By: #### T SH, LIPID, CMP #### [facility] [address] [address] [address] Randall Goncalves ALP [Catalytic activity/Vol] 84 U/L Normal 46-116 [facility] Comment on above: Performed By: #### T SH, LIPID, CMP #### [facility] [address] [address] [address] Randall Goncalves ALT [Catalytic activity/Vol] 24 U/L Normal 14-59 [facility] Comment on above: Performed By: #### T SH, LIPID, CMP #### [facility] [address] [address] [address] Randall Goncalves Anion gap [Moles/Vol] 10.8 mmol/L Normal [facility] Comment on above: Performed By: #### T SH, LIPID, CMP #### [facility] [address] [place] [address] Dr. Randall Goncalves AST [Catalytic activity/Vol] 14 U/L Critically low 15-37 [facility] Comment on above: Performed By: #### T SH, LIPID, CMP #### [facility] [address] [place] [address] Dr. Randall Goncalves Bilirubin [Mass/Vol] 0.5 mg/dL Normal 0.2-1.0 [facility] Comment on above: Performed By: #### T SH, LIPID, CMP #### [facility] [address] [place] [address] Dr. Randall Goncalves Calcium [Mass/Vol] 9.2 mg/dL Normal 8.5-10.1 [facility] Comment on above: Performed By: #### T SH, LIPID, CMP #### [facility] [address] [place] [address] Dr. Randall Goncalves Chloride [Moles/Vol] 103 mmol/L Normal 98-107 [facility] Comment on above: Performed By: #### T SH, LIPID, CMP #### [facility] [address] [place] [address] Dr. Randall Goncalves CO2 [Moles/Vol] 30.1 mmol/L Normal 21.0-32.0 [facility] Comment on above: Performed By: #### T SH, LIPID, CMP #### [facility] [address] [place] [address] Dr. Randall Goncalves Creatinine [Mass/Vol] 0.85 mg/dL Normal 0.55-1.02 [facility] Comment on above: Performed By: #### T SH, LIPID, CMP #### [facility] [address] [place] [address] Dr. Randall Goncalves EGFR-AF SENEGALESE >60 Normal >=60 [facility] Comment on above: Performed By: #### T SH, LIPID, CMP #### [facility] [address] [place] [address] Dr. Randall Goncalves EGFR-NON AF SENEGALESE >60 Normal >=60 [facility] Comment on above: Performed By: #### T SH, LIPID, CMP #### [facility] [address] [place] [address] Dr. Randall Goncalves Globulin (S) [Mass/Vol] 3.8 g/dL Normal [facility] Comment on above: Performed By: #### T SH, LIPID, CMP #### [facility] [address] [place] [address] Dr. Randall Goncalves Glucose [Mass/Vol] 89 mg/dL Normal 74-106 [facility] Comment on above: Performed By: #### T SH, LIPID, CMP #### [facility] [address] [place] [address] Dr. Randall Goncalves Potassium [Moles/Vol] 3.9 mmol/L Normal 3.5-5.1 [facility] Comment on above: Performed By: #### T SH, LIPID, CMP #### [facility] [address] [place] [address] Dr. Randall Goncalves Protein [Mass/Vol] 7.7 g/dL Normal 6.4-8.2 [facility] Comment on above: Performed By: #### T SH, LIPID, CMP #### [facility] [address] [place] [address] Dr. Randall Goncalves Sodium [Moles/Vol] 140 mmol/L Normal 136-145 [facility] Comment on above: Performed By: #### T SH, LIPID, CMP #### [facility] [address] [place] [address] Dr. Randall Goncalves Urea nitrogen [Mass/Vol] 8.0 mg/dL Normal 7.0-18.0 [facility] Comment on above: Performed By: #### T SH, LIPID, CMP #### [facility] [address] [place] [address] Dr. Randall Goncalves Urea nitrogen/Creatinine [Mass ratio] 9.4 mg/mg Normal [facility] Comment on above: Performed By: #### T SH, LIPID, CMP #### [facility] [address] [address] [address] Randall Goncalves TSHon 09-10-2022 TSH 4.505 uIU/mL Critically high 0.358-3.740 [facility] Comment on above: Performed By: #### T SH, LIPID, CMP #### [facility] [address] [place] [address] Dr. Randall Goncalves UA RANDOM W/MICROSCOPICon BACTERIA MODERATE Abnormal NONE SEEN [facility] Comment on above: Performed By: #### U AMIC #### [facility] [address] [place] [address] Dr. Randall Goncalves Bilirubin Ql (U) Negative Normal NEGATIVE [facility] Comment on above: Performed By: #### U AMIC #### [facility] [address] [place] [address] Dr. Randall Goncalves CAST NONE SEEN Normal NONE SEEN [facility] Comment on above: Performed By: #### U AMIC #### [facility] [address] [place] [address] Dr. Randall Goncalves Clarity (U) CLEAR Normal CLEAR [facility] Comment on above: Performed By: #### U AMIC #### [facility] [address] [place] [address] Dr. Randall Goncalves Color (U) YELLOW Normal YELLOW [facility] Comment on above: Performed By: #### U AMIC #### [facility] [address] [place] [address] Dr. Randall Goncalves Crystals LM Nom (Urine sed) NONE SEEN Normal NONE SEEN [facility] Comment on above: Performed By: #### U AMIC #### [facility] [facility] [address] [place] [address] Dr. Randall Goncalves Epithelial cells LM Ql (Urine sed) MODERATE Abnormal NONE SEEN /RARE The [facility] Comment on above: Performed By: #### U AMIC #### [facility] [address] [address] [address] Randall Goncalves Glucose Ql (U) Negative Normal NEGATIVE The [facility] Comment on above: Performed By: #### U AMIC #### [facility] [address] [address] [address] Randall Goncalves Hemoglobin Ql (U) MODERATE Abnormal NEGATIVE The [facility] Comment on above: Performed By: #### U AMIC #### [facility] [address] [address] [address] Randall Goncalves Ketones Ql (U) Negative Normal NEGATIVE The [facility] Comment on above: Performed By: #### U AMIC #### [facility] [address] [address] [address] Randall Goncalves LEUKOCYTES Negative Normal NEGATIVE [facility] Comment on above: Performed By: #### U AMIC #### [facility] [address] [address] [address] Randall Goncalves MUCOUS NONE SEEN Normal NONE SEEN [facility] Comment on above: Performed By: #### U AMIC #### [facility] [address] [address] [address] Randall Goncalves Nitrite Ql (U) Negative Normal NEGATIVE The [facility] Comment on above: Performed By: #### U AMIC #### [facility] [address] [address] [address] Randall Goncalevs pH (U) 7.0 [pH] Normal 5-9 [facility] Comment on above: Performed By: #### U AMIC #### [facility] [address] [address] [address] Randall Goncalves RBC 5-10 Abnormal 0-2 [facility] Comment on above: Performed By: #### U AMIC #### [facility] [address] [address] [address] Randall Goncalves SPEC GRAVITY 1.020 Normal 1.005-<=1.025 The [facility] Comment on above: Performed By: #### U AMIC #### [facility] [address] [place] [address] Dr. Randall Goncalves SPERMATOZOA, UR PRESENT Abnormal The [facility] Comment on above: Performed By: #### U AMIC #### [facility] [address] [address] [address] Randall Goncalves UA PROTEIN Negative Normal NEGATIVE/ TRACE The [facility] Comment on above: Performed By: #### U AMIC #### [facility] [address] [address] [address] Randall Goncalves Urobilinogen Qn (U) 0.2 {Neelima'U}/dL Normal 0.2 - 1. 0 [facility] Comment on above: Performed By: #### U AMIC #### [facility] [address] [address] [address] Randall Goncalves WBC 2-5 Abnormal NONE SEEN The [facility] Comment on above: Performed By: #### U AMIC #### [facility] [address] [address] [address] Randall Goncalves US GABRIELLE DOP LEG RTon 08-17-20 US GABRIELLE DOP LEG RT EXAM: US GABRIELLE DOP LEG RT HISTORY: Pain in right leg and calf for 2 weeks. COMPARISON: 02/10/2021 TECHNIQUE: Multiple sonographic images of the deep veins of the right lower extremity were obtained, supplemented with Doppler. FINDINGS: The deep veins of the lower extremity are well visualized from the groin to the mid calf. No filling defect is identified to indicate a thrombus. There is normal compression augmentation of flow bilaterally. Flow is seen in portions of the greater saphenous vein. IMPRESSION: There is no direct or indirect evidence of deep vein thrombosis in the right lower extremity at this time. Similar findings were noted in the prior study from 02/10/2021. Electronically authenticated by: LULI REDDY Date: 2022-08-17 17:04 Normal [facility] Vital Signs Date Time Vital Sign Value Performing Clinician [place] jackson 12-06-2023 15:48-0500 Blood Pressure Location Josr MCGILL [facility] [place] 12-06-2023 15:48-0500 Diastolic blood pressure 82 mm[Hg] Josr MCGILL [facility] [place] 12-06-2023 15:48-0500 Heart rate 70 /min Josr MCGILL [facility] [place] 12-06-2023 15:48-0500 Respiratory rate 16 /min Josr MCGILL [facility] [place] 12-06-2023 15:48-0500 Systolic blood pressure 118 mm[Hg] Josr MCGILL [facility] [place] Encounters Encounter Date Encounter Type Care Provider Facility Start: 12-06-2023 End: 12-07-2023 [facility] Start: 12-06-2023 End: 12-06-2023 Patient encounter procedure Josr MCGILL [facility] Start: 10-20-2023 ambulatory Jors MCGILL Facility:[facility] [place] Start: 10-19-2023 End: 10-19-2023 ambulatory CHANA MELBA Not Available Start: 02-21-2023 End: 02-22-2023 ambulatory MACIE ROJAS BETZAIDAMaria LuisaPK Facility:[facility] Start: 01-10-2023 End: 01-10-2023 ambulatory MACIE ROJAS MELBA Facility:[facility] Start: 09-13-2022 Encounter for genera l adult medical examination without abnormal findings MACIE ROJAS MELBA [facility] Start: 09-10-2022 End: 09-11-2022 ambulatory MACIE ROJAS MELBA Facility:[facility] Start: 09-10-2022 End: 09-11-2022 Encounter for general adult medical examination without abnormal findings MACIE ROJAS BETZAIDAMaria LuisaPK Facility:[facility] Start: 08-17-2022 End: 08-18-2022 ambulatory MACIE ROJAS BETZAIDAMaria LuisaPK Facility:[facility] Procedures Date Procedure Procedure Detail Performing Clinician Abdominal hysterectomy Deniz MCGILL section Josr Arzate Immunizations Immunization Date Immunization Notes Care Provider Fa [facility] 08-29-2023 influenza virus vaccine, unspecified formulation Josr MCGILL [facility] [place] 02-09-2021 SARS-CoV-2 (COVID-19 ) mRNA BNT-162b2 palma MCGILL [facility] [place] 01-18-2021 SARS-CoV-2 (COVID-19 ) mRNA BNT-162b2 palma MCGILL [facility] [place] Payers Date Payer Category Payer Unknown [id number] 1970 Unknown [id number] [id number] [id number] 1972 Unknown [id number] [id number] [id number] 1972 Unknown [id number] 2.16.84 [id number] 1972 Unknown [id number] 2.16.84 [id number] 1972 Unknown [id number] 1972 Unknown [id number] 2.16.8 [id number] 1959 Unknown [id number] Social History Date Type Detail Facility Start: 12-06-2023 Tobacco smoking status Ex-smoker (fi nding) [facility] Tobacco smoking status Never [facility] [place] Sex Assigned At Female [facility] Functional Status Date Assessment Result Facility 12-06-2023 Functional Status N/A [facility] Clinical Note 12-09-2023 Note Date & Type Note Facility 12-09-2023 Note Chief Complaint consultation for cholelithiasis HPI Staff 53 year old female presents on consultation from Chana Carvalho for cholelithiasis. RUQ US completed 09/2023 with borderline thickening and cholelithiasis. She denies RUQ or epigastric pain. Denies nausea, vomiting or bowel changes. Reports intermittent heartburn with consumption of spicy foods or caffeine. US was completed after cholelithiasis was noted on CT that was completed for complaint of LLQ pain. History of Present Illness 53 yo female with incidental finding of large gallstones on US, abd ct and MRI, had ct for lower abd pain, liver cysts and stones noted on US, MRI with simple liver cysts, large gallstones, no GB wall thickening or inflammation; patient reports some intermittent upper abd pain/bloating after eating, she thought it was GERD; no N/V, no fevers, no h/o jaundice or pancreatitis; no bowel changes; abd operations significant for and MARI; no asa or NSAID use; no tobacco use. Review of Systems PHQ Score Initial Depression Screen Score: 0 SCORE ROS - Provider Constitutional: no fever, no sweats, no weight loss. Eyes: no glasses, no blurred vision, no visual loss. ENMT: no dentures, no hoarseness, no swallowing difficulties, no hearing loss, no ear infection(s), no nose bleeds. Cardiovascular: normal blood pressure, no chest pain, regular heartbeat, no heart murmur. Respiratory: no shortness of breath, no cough, no asthma, no wheezing. Gastrointestinal: no nausea, no vomiting, no diarrhea, no constipation, no blood in stool, no change in bowel habits, no abdominal pain, no hepatitis. Genitourinary: no kidney stones, no urine infection, no dysuria. Musculoskeletal: no pain, no weakness. Skin: no changing moles, no rash, no skin lumps. Neurologic: no seizures, no epilepsy, no headache. Psychiatric: no emotional or psychiatric problem. Heme/Lymph: no bleeding problems, no anemia, no blood clots, no transfusions. Allergy/Immunologic: no swollen lymph nodes/glands, no IV drug abuse. Other: Additional ROS info: Except as noted in the above Review of Systems and in the History of Present Illness, all other systems have been reviewed and are negative or noncontributory. Physical Exam Vitals & Measurements HR: 70(Peripheral) RR: 16 BP: 118/82 HT: 65 in HT: 165 cm WT: 80.4 kg WT: 176.88 lb BMI: 29.53 HEENT: normal conjunctiva, sclera clear, no scleral icterus, EOM intact, PERRLA, oral mucosa moist without lesions. Neck: trachea midline, no mass, symmetric, no thyromegaly or nodules, no adenopathy Respiratory: lungs CTA, respirations non labored. Cardiovascular: regular rate and rhythm, no murmur, no pedal edema or varicosities. Gastrointestinal: soft, non distended, no tenderness, no masses, no palpable hernias, diastasis recti no, no hepatosplenomegaly; normal bs Lymphatic: no cervical adenopathy, no supraclavicular adenopathy. Musculoskeletal: normal gait, digits and nails without infection, nodes, cyanosis, clubbing. Skin: no rashes, no lesions, no ulcers, no subcutaneous nodules, induration. Psychiatric/Neuro: oriented to time, place, person, judgement normal, affect appropriate for age, insight intact, no focal deficits. Tests: x-rays reviewed, review of old records completed , Discussed surgical options, risks, and possible complications with patient. Assessment/Plan 1. Symptomatic cholelithiasis (K80.20: Calculus of gallbladder without cholecystitis without obstruction) plan laparoscopic cholecystectomy, possible intraoperative cholangiogram; informed consent obtained. Unasyn 3 gms IV prior to OR SCDs Follow-up No qualifying data available Problem List/Past Medical History Ongoing BMI 29.0-29.9,adult Cholelithiases Heartburn Overweight Symptomatic cholelithiasis Historical No qualifying data Procedure/Surgical History Abdominal hysterectomy, section. Medications Multi Vitamins oral tablet, 1 tab(s), Oral, Daily Allergies No Known Allergies No Known Medication Allergies Social History Alcohol - Denies Alcohol Use, 12/06/2023 Substance Abuse - Denies Substance Abuse, 12/06/2023 Tobacco Former smoker, quit more than 30 days ago Tobacco Use:. Never Smokeless Tobacco Use:. Cigarettes, 0.25 per day. Started age 20.0 Years. Stopped age 40 Years., 12/06/2023 Family History Diabetes mellitus type 2: Father. Hypertension: Father. Uterine cancer: Mother. Immunizations Vaccine Date Status influenza virus vaccine, inactivated 08/29/2023 Recorded SARS-CoV-2 (COVID-19) mRNA BNT-162b2 vax 02/09/2021 Recorded SARS-CoV-2 (COVID-19) mRNA BNT-162b2 vax 01/18/2021 Recorded [facility] Comment on above: Result Comment: Elec tronically Signed By: ARTEM NUNN, Josr Dumont\Date and Time Signed: 12/09/23 11:53 EST Evaluation + Plan note Note Date & Type Note Facility Evaluation + Plan note No data available for this section [facility] Discharge instructions Note Date & Type Note Facility Hospital Discharge instructions No data available for this section [facility] note Note Date & Type Note Facility Progress note No data available for this section [facility] Summary Purpose Family History No Family History Records FoundNo Family History Records Found No data available for this section No Family History Records Found Advance Directives No Advanced Directives Records FoundNo Advanced Directives Records FoundNo Advanced Directives Records Found Additional Source Comments INFORMATION SOURCE (unrecogn ized section and content) DATE CREATED AUTHOR 02/25/2023 [facility] DATE CREATED AUTHOR AUTHOR'S ORGANIZ ATION 10/20/2023 [facility] EPIC DATE CREATED AUTHOR AUTHOR'S ORGANIZ ATION 12/11/2023 [facility] Patient Care team informatio n (unrecognized section and content) Personnel Name: CHANA CARVALHO CNP Address: Address: [address] [place] [address] FOR RECORDS PERTAINING TO PATIENTS WHO ARE OR HAVE BEEN ENROLLED IN A CHEMICAL DEPENDENCY/SUBSTANCEABUSE PROGRAM, SOME INFORMATION MAY BE OMITTED. This clinical summary was aggregated from multiple sources. Caution should be exercised in using it in the provision of clinical care. This summary normalizes information from multiple sources, and as a consequence, information in this document may materially change the coding, format and clinical context of patient data. In addition, data may be omitted in some cases. CLINICAL DECISIONS SHOULD BE BASED ON THE PRIMARY CLINICAL RECORDS. [facility] provides no warranty or guarantee of the accuracy or completeness of information in this document.
[2024-01-03] MEDS: LACTATED RINGER'S SOLUTION 1,000 ML 50 ML IV (09:27)
[2024-01-03] MEDS: AMPICILLIN SODIUM/SULBACTAM NA 3 GM in 0.9 % SODIUM CHLORIDE 100 ML IV (11:09)
[2024-01-03] MEDS: BUPIVACAINE HCL 0.5% PF 50 MG/10 ML VIAL 20 ML INJ (12:33)
[2024-01-03] MEDS: HYDROCODONE/ACET 5-325 MG TABLET 1 TAB PO (13:56)
--- NOTE | 2024-01-03 14:26 | PC.NURSE ---
1356 gave patient pain medication.
== END 2024-01-03 14:26 | disposition home or self-care (01) ==
PROVIDERS: PCP Nurse Practitioner; Visit Provider Surgery
PROC: (CPT 00790; principal; 2024-01-03 10:00)
DX: K80.10 Calculus of gallbladder with chronic cholecystitis without obstruction (principal); E66.3 Overweight; Z68.29 Body mass index [BMI] 29.0-29.9, adult; R12 Heartburn; Z90.710 Acquired absence of both cervix and uterus; Z87.891 Personal history of nicotine dependence
CPT/HCPCS: 00790; 47562; 88304; 99999